=== PATIENT | female | born 1965 | race Caucasian/White ===

== ENCOUNTER 2022-11-16 12:12 | Emergency (ER) | payer SELFPAY ==
--- NOTE | 2022-11-16 12:19 | CTR_ITS ---
PROCEDURE INFORMATION: Exam: CT Head Without Contrast Exam date and time: 11/16/2022 12:46 PM Age: 57 years old Clinical indication: Weakness, extremity; Prior surgery; Surgery date: 6+ months; Surgery type: Benign brain tumor removed; Additional info: Weakness/tia TECHNIQUE: Imaging protocol: Computed tomography of the head without contrast. Axial, coronal and sagittal reformatted images were created and reviewed. Radiation optimization: All CT scans at this facility use at least one of these dose optimization techniques: automated exposure control; mA and/or kV adjustment per patient size (includes targeted exams where dose is matched to clinical indication); or iterative reconstruction. REPORTING DATA: Count of CT and Cardiac NM exams in prior 12 months: This patient has received 0 known CTs and 0 known cardiac nuclear medicine studies in the 12 months prior to the current study. COMPARISON: No relevant prior studies available. RADIATION DOSE METRICS: Total DLP (mGy-cm): 1072.08 FINDINGS: Brain: No CT evidence of acute intracranial hemorrhage or acute territorial infarction. No significant mass effect or midline shift. Basal cisterns patent. Cerebral ventricles: Normal in size and configuration. Paranasal sinuses: Unremarkable. No fluid levels. Mastoid air cells: Minimal opacification of the right mastoid air cells. Bones/joints: No acute osseous abnormality. Status post right frontal craniotomy. Soft tissues: Grossly unremarkable. CT/CT head wo con* [id number] IMPRESSION: 1. No CT evidence of acute intracranial pathology. 2. Additional findings, as above.
[2022-11-16 12:26] VITALS: BMI 48.2
[2022-11-16 12:31] VITALS: BP 152/100; PULSE 62; RESP 16; TEMP 36.6; O2SAT 97
[2022-11-16 12:54] VITALS: BP 149/85; PULSE 70; RESP 19; O2SAT 99
[2022-11-16 13:13] LABS: Basophils % 0.4 %; Eosinophils # 0.1 10^3/uL (0.0-0.8); Eosinophils % 1.6 %; Hematocrit 39.7 % (37.0-47.0); Hemoglobin 12.9 g/dL (11.5-15.3); Lymphocytes # 2.9 10^3/uL (0.8-4.8); Lymphocytes % 39.5 %; Mean Corpuscular HGB Conc 32.5 g/dL (30.0-36.0); Mean Corpuscular Hemoglobin 28.9 pg (28.0-34.0); Mean Platelet Volume 9.5 fL (7.4-10.4); Monocytes # 0.5 10^3/uL (0.2-0.9); Monocytes % 6.4 %; Neutrophils # 3.78 10^3/uL (1.8-7.7); Neutrophils % 51.8 %; Nucleated Red Blood Cells % 0 %; Platelet Count 265 10^3/cmm (130-400); Red Blood Count 4.46 10^6/uL (4.1-5.3); Red Cell Distribution Width 12.3 % (12.1-15.1); White Blood Count 7.3 10^3/uL (4.0-10.0)
[2022-11-16 13:34] LABS: Alanine Aminotransferase 9 U/L (0-33); Albumin Level 4.1 g/dL (3.5-5.2); Alkaline Phosphatase 58 U/L (35-105); Aspartate Amino Transferase 12 U/L (0-32); Blood Urea Nitrogen 10 mg/dL (6-20); Calcium 8.9 mg/dL (8.5-10.5); Carbon Dioxide 26 mmol/L (22-29); Chloride 107 mmol/L (98-107); Globulin 2.9 g/dL (1.3-4.6); Glucose 98 mg/dL (65-115); Osmolality Calculated 295 mOsm/kg (285-295); Sodium 143 mmol/L (136-145); Total Bilirubin 0.3 mg/dL (0.15-1.2)
[2022-11-16 13:40] VITALS: BP 147/80; PULSE 59; RESP 16; O2SAT 98
--- NOTE | 2022-11-16 13:58 | ED_ITS ---
HPI - Neuro Symptoms/Deficit General: Chief Complaint: Neuro Symptoms/Deficit Stated Complaint: think had ministroke 1 hour ago Time Seen by Provider: 11/16/22 12:18 Source: patient Mode of arrival: ambulatory History of Present Illness: 57-year-old female who presents to the emergency room with complaints of transient vision loss and weakness in her arms and legs bilaterally that lasted a few minutes and then resolved at this time she is completely back to her normal baseline. She did not have any difficulty with speech or swallowing. The vision loss was only in her right eye. She has a history of a chronic demyelinating polyneuropathy. She is visiting here from [place] and previously was seeing a neurologist there. She has not had any known history of strokes in the past. She denies any chest pain or shortness of breath. Onset (ago): hour(s) Severity: moderate Relieving factors: none Exacerbating factors: none Associated symptoms: Deny chest pain, cough, diaphoresis, fevers/chills, headache(s), anorexia, malaise, nausea, seizures, short of breath, syncope, tingling, vertigo, vomiting or weakness Treatments Prior to Arrival: Aspirin Review of Systems Const: Denies: fever(s), chills, fatigue, malaise or diaphoresis ENMT: Denies: throat pain, ear or mastoid pain, nasal discharge or nasal congestion Card: Denies: chest pain or syncope Resp: Denies: dyspnea, productive cough or non-productive cough GI: Denies: abdominal pain, nausea or vomiting : Denies: flank pain, difficulty voiding, dysuria, urinary frequency or urinary urgency Musc: Denies: neck pain Skin/Breast: Denies: rash or pruritus Neuro: Denies: headache(s) or vertigo NIH stroke score NIHSS: Level Of Consciousness - 1a: 0 Level Of Consciousness Questions - 1b: Both Correct Level Of Consciousness Commands - 1c: Both Correct Best Gaze - 2: Normal Visual [place] - 3: No Visual Loss Facial Palsy - 4: Normal Motor Arm Right - 5: No Drift Motor Arm Left - 5: No Drift Motor Leg Right - 6: No Drift Motor Leg Left - 6: No Drift Limb Ataxia - 7: Absent Sensory - 8: Normal Best Language - 9: No Aphasia Dysarthia - 10: Normal Extinction And Inattention - 11: 0 Score: Total Score: 0 Physical Exam Const: GENERAL APPEARANCE: cooperative and comfortable ORIENTATION/CONSCIOUSNESS: Yes awake, Yes oriented to person, Yes oriented to place and Yes oriented to time HENMT: COMMON NORMALS: normocephalic, atraumatic and hearing grossly normal bilaterally HEAD & SCALP: normocephalic and atraumatic Resp: COMMON NORMALS: normal respiratory effort, No retractions, No use of accessory muscles and clear to auscultation bilaterally AUSCULTATION: clear to auscultation bilaterally Cardio: COMMON NORMALS: regular rate, regular rhythm and No murmurs present (Cardio) RATE: regular rate RHYTHM: regular rhythm GI: COMMON NORMALS: Soft to palpation and No hepatosplenomegaly present AUSCULTATION: Yes normoactive bowel sounds PALPATION: Yes Soft to palpation, No Tenderness to palpation present (GI), No Guarding due to palpation present (GI) and Yes No hepatosplenomegaly present Extremity: COMMON NORMALS: normal to inspection, capillary refill normal, no clubbing, cyanosis or edema, no calf tenderness and no pedal edema Neuro: SENSORIUM/ORIENTATION: Yes oriented to person, Yes oriented to place and Yes oriented to time Skin: COMMON NORMALS: no rashes or lesions noted GENERAL SKIN EXAM: no rashes or lesions noted Course Vital Signs: Vital signs: Vital Signs Temperature 97.9 F 11/16/22 12:31 Pulse Rate 59 L 11/16/22 13:40 Respiratory Rate 16 11/16/22 13:40 Blood Pressure 147/80 11/16/22 13:40 Pulse Oximetry 98 11/16/22 13:40 Oxygen Delivery Me thod Room Air 11/16/22 13:40 MDM - Neuro Symptoms/Deficit Medical Decision Making No neurologic deficit the time the patient is seen CT of the head does not show anything acute functionally she is fully intact and NIH score is 0. Based on her description of symptoms this may have been a TIA it may also be part of her chronic demyelinating polyneuropathy neuropathy. She still has numbness and tingling in her hands but she states its been chronic she is just not had an issue before she felt like she could not move her arms and legs. Or she had the vision issues prior. Normal would recommend dual platelet therapy and statin as well as further outpatient testing including 24-hour Holter monitor carotid duplex MRI of the head and echocardiogram. She is visiting in this area and will be leaving in the next few days. Discussed with her the things that she would we would normally recommend that she have we will provide her prescription for clopidogrel and Lipitor and then have her follow-up with her primary care doctor when she returns home for the remainder of the work-up. Return if she has further problems. Medical Records I reviewed the patient's medical records. Lab Data I reviewed the patient's lab results. 11/16/22 13:03 11/16/22 13:[address] 11/16/22 12:19 IMPRESSION: 1. No CT evidence of acute intracranial pathology. 2. Additional findings, as above. Laboratory Results WBC 7.3 10^3/uL (4.0-10.0) 11/16/22 13:03 RBC 4.46 10^6/uL (4.1-5.3) 11/16/22 13:03 Hgb 12.9 g/dL (11.5-15.3) 11/16/22 13:03 Hct 39.7 % (37.0-47.0) 11/16/22 13:03 MCV 89.0 fl (81-99) 11/16/22 13:03 MCH 28.9 pg (28.0-34.0) 11/16/22 13:03 MCHC 32.5 g/dL (30.0-36.0) 11/16/22 13:03 RDW 12.3 % (12.1-15.1) 11/16/22 13:03 Plt Count 265 10^3/cmm (130-400) 11/16/22 13:03 MPV 9.5 fL (7.4-10.4) 11/16/22 13:03 Neut % (Auto) 51.8 % 11/16/22 13:03 Lymph % (Auto) 39.5 % 11/16/22 13:03 [place] % (Auto) 6.4 % 11/16/22 13:03 Eos % (Auto) 1.6 % 11/16/22 13:03 Baso % (Auto) 0.4 % 11/16/22 13:03 Neut # (Auto) 3.78 10^3/uL (1.8-7.7) 11/16/22 13:03 Lymph # (Auto) 2.9 10^3/uL (0.8-4.8) 11/16/22 13:03 [place] # (Auto) 0.5 10^3/uL (0.2-0.9) 11/16/22 13:03 Eos # (Auto) 0.1 10^3/uL (0.0-0.8) 11/16/22 13:03 Baso # (Auto) 0.0 10^3/uL (0.0-0.1) 11/16/22 13:03 Nucleated RBC % (auto) 0 % 11/16/22 13:03 Nucleated RBCs # 0.0 /100WBC 11/16/22 13:03 Sodium 143 mmol/L (136-145) 11/16/22 13:03 Potassium 4.0 mmol/L (3.5-5.1) 11/16/22 13:03 Chloride 107 mmol/L (98-107) 11/16/22 13:03 Carbon Dioxide 26 mmol/L (22-29) 11/16/22 13:03 Anion Gap 14.0 (5-19) 11/16/22 13:03 BUN 10 mg/dL (6-20) 11/16/22 13:03 Creatinine 0.6 mg/dL (0.5-0.9) 11/16/22 13:03 GFR Calculation 103.0 mL/min (90-130) 11/16/22 13:03 Glucose 98 mg/dL (65-115) 11/16/22 13:03 Calculated Osmolality 295 mOsm/kg (285-295) 11/16/22 13:03 Calcium 8.9 mg/dL (8.5-10.5) 11/16/22 13:03 Total Bilirubin 0.3 mg/dL (0.15-1.2) 11/16/22 13:03 AST 12 U/L (0-32) 11/16/22 13:03 ALT 9 U/L (0-33) 11/16/22 13:03 Alkaline Phosphatase 58 U/L (35-105) 11/16/22 13:03 Total Protein 7.0 g/dL (6.6-8.7) 11/16/22 13:03 Albumin 4.1 g/dL (3.5-5.2) 11/16/22 13:03 Globulin 2.9 g/dL (1.3-4.6) 11/16/22 13:03 Discharge Plan Discharge Patient Disposition: Home Clinical Impression: Transient cerebral ischemia Condition: Stable Prescriptions: New clopidogrel 75 mg tablet 75 mg PO DAILY Qty: 30 0RF Lipitor 40 mg tablet 40 mg PO DAILY Qty: 30 0RF No Action acetaminophen 325 mg Tablet 1,300 mg PO QID PRN (Reason: Pain) Aspir-81 81 mg Tablet,Delayed Release (Dr/Ec) 81 mg PO DAILY Discharge Orders: Discharge ED (Routine); Ordered 11/16/22 Ordered By: Pawel Zhang Discharge Diet: Usual diet Discharge Activity: Increase activity as tolerated Patient Instructions: Opioid Safety, Pain Management Activity Restrictions/Additional Instructions: You are seen in the emergency room for possible TIA. CT of your head is unremarkable. We would recommend that you have further evaluation done as an outpatient basis including 48-hour Holter monitor to evaluate for arrhythmias, MRI of the head, echocardiogram, and carotid duplex. Since you are visiting this area and returning back to your home soon would recommend that you follow- up with your primary care doctor to have the further evaluation done. In the meantime for secondary prevention recommend that you add clopidogrel to the aspirin that you are taking daily take 1 of each daily and also add Lipitor 40 daily. Coding Level of Care Code ED [employer] Intern for [employer]
== END 2022-11-16 14:10 | disposition home or self-care (01) ==
PROVIDERS: Emergency Provider Family Medicine
DX: G45.9 Transient cerebral ischemic attack, unspecified (principal); Z79.82 Long term (current) use of aspirin
CPT/HCPCS: 36415; 70450; 80053; 85025; 99285

== ENCOUNTER → 2025-01-24 11:09 | Outpatient (BNVA) | payer BC, SELFPAY | PROVIDERS: PCP Nurse Practitioner Family; Visit Provider Nurse Practitioner Family | DX: Z98.890 Other specified postprocedural states (principal); Z86.018 Personal history of other benign neoplasm; Z90.711 Acquired absence of uterus with remaining cervical stump; G61.81 Chronic inflammatory demyelinating polyneuritis; G45.9 Transient cerebral ischemic attack, unspecified; R41.9 Unspecified symptoms and signs involving cognitive functions and awareness; M35.9 Systemic involvement of connective tissue, unspecified; M48.061 Spinal stenosis, lumbar region without neurogenic claudication; M47.816 Spondylosis without myelopathy or radiculopathy, lumbar region; M41.9 Scoliosis, unspecified; G62.9 Polyneuropathy, unspecified; M47.9 Spondylosis, unspecified; G43.909 Migraine, unspecified, not intractable, without status migrainosus; G56.03 Carpal tunnel syndrome, bilateral upper limbs; E51.9 Thiamine deficiency, unspecified; D24.1 Benign neoplasm of right breast; D24.2 Benign neoplasm of left breast; M72.2 Plantar fascial fibromatosis; F41.8 Other specified anxiety disorders; I10 Essential (primary) hypertension; G89.29 Other chronic pain; G51.0 Bell's palsy; R53.83 Other fatigue | CPT/HCPCS: 80053; 80061; 82306; 84439; 84443; 85025; 86038; 86140; 86431 ==

== ENCOUNTER → 2025-04-01 10:19 | Outpatient (BNVA) | payer BC, SELFPAY | PROVIDERS: PCP Nurse Practitioner Family; Visit Provider Nurse Practitioner Family | DX: M35.9 Systemic involvement of connective tissue, unspecified (principal); E66.9 Obesity, unspecified; Z68.39 Body mass index [BMI] 39.0-39.9, adult | CPT/HCPCS: 82652; 86140 ==